=== PATIENT | male | born 1995 | race Hispanic/Latino ===

== ENCOUNTER 2019-09-16 21:24 | Emergency (ER) | payer SELFPAY ==
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
[2019-09-16] MEDS ORDERED: HYDROcodone/Acetaminophen 10/325 mg Tablet ONE (22:23)
== END 2019-09-16 22:26 | disposition home or self-care (01) ==
LOC: ERS 21:24
DX: S29.9XXA Unspecified injury of thorax, initial encounter (principal); F17.210 Nicotine dependence, cigarettes, uncomplicated; V49.49XA Driver injured in collision with other motor vehicles in traffic accident, initial encounter
CPT/HCPCS: 71045

== ENCOUNTER 2020-12-13 19:15 | Inpatient (IN) | payer SELFPAY ==
[~2020-12-13 19:15] MED LIST: Iopamidol-370 76% 500 ML 1 ML ONE
[2020-12-13] MEDS ORDERED: Acetaminophen 500 MG TAB ONE (19:49)
[2020-12-13] MEDS ORDERED: Dexamethasone 4 mg/ml Vial ONE (19:51)
[2020-12-13] MEDS ORDERED: Ketorolac Tromethamine 30 MG/ML VIAL ONE (19:51)
[2020-12-13 20:18] LABS: ALT (SGPT) 23 U/L (8-55); AST (SGOT) 25 U/L (5-34); Albumin 3.9 g/dL (3.5-5.0); Alkaline Phosphatase 81 U/L (40-110); Anion Gap 13 mmol/L (10-20); BUN (Urea Nitrogen) 14 mg/dL (8.9-20.6); Bilirubin, Total 0.3 mg/dL (0.2-1.2); CK (CPK) 73 U/L (30-200); Calc. Creatinine Clearance 0 mL/min (70-130); Calcium 8.7 mg/dL (7.8-10.44); Carbon Dioxide 23 mmol/L (22-29); Chloride 102 mmol/L (98-107); Globulin 2.9 g/dL (2.4-3.5); Glucose 134 mg/dL (70-105); Lipase 11 U/L (8-78); Potassium 3.7 mmol/L (3.5-5.1); Protein, Total 6.8 g/dL (6.0-8.3); Sodium 134 mmol/L (136-145)
[2020-12-13 20:22] LABS: Hemoglobin 13.9 g/dL (14.0-18.0); Mean Corpuscular HGB CONC 32.9 g/dL (32.0-36.0); Mean Corpuscular Volume 88.1 fL (78.0-98.0); Mean Platelet Volume 7.5 fL (7.4-10.4); Platelet Count 275 thou/uL (130-400); White Blood Cell (WBC) Count 20.8 thou/uL (4.8-10.8)
[2020-12-13 20:47] LABS: CKMB 1.5 ng/mL (0-6.6)
[2020-12-13 20:53] LABS: Band 6 % (5-11); Lymphocytes 10 % (21-51); MDiff Complete? YES; Monocytes 10 % (0-10); Neutrophil 73 % (42-75); Platelet Morphology Comment Appears Adequate; RBC Morphology Normal; Reactive Lymphocytes 1 % (0-10)
[2020-12-13] MEDS ORDERED: Aspirin Chewable 81 MG TAB ONE ×2 (21:08)
[2020-12-13] MEDS ORDERED: Cefepime 2 GM VIAL ONE (22:18)
[2020-12-13 22:32] LABS: SARS-CoV-2 NAA Rapid Test Not Detected (NotDetected)
[2020-12-13] MEDS ORDERED: Vancomycin 1 GM/200 ML BAG ONE (22:47)
[2020-12-13] MEDS ORDERED: Sodium Chloride 0.9% 1,000 ML IV SCH (23:45)
[2020-12-13] MEDS ORDERED: Ondansetron ODT 4 MG TAB SL PRN (23:45)
[2020-12-13] MEDS ORDERED: Ondansetron PF 4 MG/2 ML Vial IVP PRN (23:45)
[2020-12-13 23:58] LABS: Troponin I 1.292 ng/mL (< 0.028)
[2020-12-14] MEDS ORDERED: Norepinephrine 8 MG/0.9% NS 250 ML ONE (00:39)
[2020-12-14] MEDS ORDERED: Atropine Sulfate 1 mg/10 ml Syringe ONE (00:45)
[2020-12-14 00:50] LABS: Actual Bicarbonate (HCO3a) 21.2 mEq/L (22-28); Base Excess (BEa) -4.5 mEq/L (-2.0 to +3.0); CO2 Tension 41.3 mmHg (35.0-45.0); Calcium, Ionized (arterial) 1.11 mmol/L (1.12-1.30); Hemoglobin (Hb) 12.6 g/dL (14.0-18.0); pH, Arterial 7.33 (7.35-7.45)
[2020-12-14 00:53] LABS: ALV-art Gradient 72.305 mmHg (0-20); O2 Tension (PaO2), arterial 25.8 mmHg (80.0-100.0)
[2020-12-14] MEDS ORDERED: Nitroglycerin 0.4 MG TAB (25 Tab Bottle) ONE (01:05)
[2020-12-14] MEDS ORDERED: Ondansetron PF 4 MG/2 ML Vial IVP PRN (01:28)
[2020-12-14] MEDS ORDERED: Acetaminophen 325 MG TAB PO PRN (01:28)
[2020-12-14] MEDS ORDERED: Morphine 4 MG/ML VIAL SLOW IVP PRN (01:30)
[2020-12-14] MEDS ORDERED: Morphine 4 MG/ML VIAL ONE (01:33)
[2020-12-14] MEDS ORDERED: Sodium Chloride 0.9% 10 ML ONE (01:35)
[2020-12-14 01:52] VITALS: BMI 21.1
[2020-12-14 02:19] LABS: #Lymphocytes 1.4 thou/uL (1.20-3.40); #Monocytes 0.6 thou/uL (0.11-0.59); #Neutrophils 20.3 thou/uL (1.40-6.50); %Basophils 0.1 % (0.0-1.0); %Eosinophils 0.1 % (0.0-10.0); %Lymphocytes 6.3 % (21.0-51.0); %Monocytes 2.7 % (0.0-10.0); %Neutrophils 90.8 % (42.0-75.0); Hemoglobin 13.3 g/dL (14.0-18.0); Mean Corpuscular HGB CONC 33.3 g/dL (32.0-36.0); Mean Corpuscular Hemoglobin 30.1 pg (27.0-31.0); Mean Corpuscular Volume 90.2 fL (78.0-98.0); Platelet Count 267 thou/uL (130-400); RBC Distribution Width 12.1 % (11.5-14.5); Red Blood Cell (RBC) Count 4.43 mill/uL (4.70-6.10); White Blood Cell (WBC) Count 22.3 thou/uL (4.8-10.8)
[2020-12-14 02:26] LABS: Amphetamine Detected (NotDetected); Barbiturates Screen Not Detected (NotDetected); Benzodiazepine Screen Not Detected (NotDetected); Cocaine Metabolite Screen Not Detected (NotDetected); Methadone Not Detected (NotDetected); Methamphetamine Detected (NotDetected); Opiate Screen Not Detected (NotDetected); Oxycodone Screen Not Detected (NotDetected); Phencyclidine (PCP) Not Detected (NotDetected); THC/Cannabinoid Screen Not Detected (NotDetected); Tricyclic Screen Not Detected (NotDetected)
[2020-12-14] MEDS ORDERED: Enoxaparin Sodium 60 MG/0.6 ML SYRINGE SC SCH (02:45)
[2020-12-14] MEDS ORDERED: ACYCLOVIR SODIUM IVPB SCH (02:45)
[2020-12-14 02:51] LABS: ALT (SGPT) 57 U/L (8-55); AST (SGOT) 66 U/L (5-34); Albumin 3.3 g/dL (3.5-5.0); Alkaline Phosphatase 72 U/L (40-110); Anion Gap 11 mmol/L (10-20); BUN (Urea Nitrogen) 12 mg/dL (8.9-20.6); Bilirubin, Total 0.3 mg/dL (0.2-1.2); Calc. Creatinine Clearance 114 mL/min (70-130); Carbon Dioxide 19 mmol/L (22-29); Chloride 111 mmol/L (98-107); Globulin 2.6 g/dL (2.4-3.5); Glucose 164 mg/dL (70-105); Potassium 4.7 mmol/L (3.5-5.1); Protein, Total 5.9 g/dL (6.0-8.3); Sodium 136 mmol/L (136-145)
[2020-12-14 02:56] VITALS: BP 83/47
[2020-12-14] MEDS ORDERED: Sodium Chloride 0.9% 1,000 ML IV SCH (03:00)
[2020-12-14] MEDS ORDERED: Thiamine HCl 200 MG/2 ML VIAL SLOW IVP SCH (03:00)
[2020-12-14 03:07] LABS: Troponin I 1.359 ng/mL (< 0.028)
[2020-12-14] MEDS ORDERED: Norepinephrine 8 MG/0.9% NS 250 ML IVPB SCH (03:15)
[2020-12-14 03:29] LABS: Bacteria/HPF None Seen HPF (None Seen); Bilirubin Negative (Negative); Blood, Urine 1+ (Negative); Clarity Clear (Clear); Glucose, Urine (Dipstick) 200 mg/dL (Negative); Ketone, Urine Negative (Negative); Leukocyte Negative Leu/uL (Negative); Nitrite Negative (Negative); Protein, Urine (Dipstick) 10 mg/dL (Neg-Trace); RBC/HPF 0-3 HPF (0-3); Specific Gravity, Urine 1.043 (1.002-1.036); Squamous Epithelial None Seen HPF (0-3); Urobilinogen Normal mg/dL (Less than 2); WBC/HPF 0-3 HPF (0-3); pH, Urine 6.5 (5.0-9.0)
[2020-12-14 03:30] LABS: Urine Culture Reflex No No
[2020-12-14 03:54] LABS: Magnesium 2.1 mg/dL (1.6-2.6)
[2020-12-14 04:08] VITALS: TEMP 97.6
[2020-12-14] MEDS ORDERED: VANCOMYCIN 1.25 GM/250 ML BAG 1.25 GM in Premix Bag 1 BAG IVPB SCH (06:00)
[2020-12-14] MEDS ORDERED: Lactated Ringer's 1,000 ML IV SCH (08:30)
[2020-12-14] MEDS ORDERED: Multivitamin W/ Minerals 1 TAB PO SCH (09:00)
[2020-12-14] MEDS ORDERED: Aspirin 325 MG TAB PO SCH (09:00)
[2020-12-14] MEDS ORDERED: Enoxaparin Sodium 40 MG/0.4 ML SYRINGE SC SCH (09:00)
[2020-12-14] MEDS ORDERED: Folic Acid 1 MG TAB PO SCH (09:00)
[2020-12-14] MEDS ORDERED: Famotidine 20 MG TAB PO SCH (09:00)
[2020-12-14] MEDS ORDERED: Cefepime 2 GM in Sodium Chloride 0.9% 100 ML IVPB SCH (09:00)
[2020-12-14 10:55] LABS: Troponin I 2.215 ng/mL (< 0.028)
[2020-12-14 11:52] LABS: Hemoglobin A1c 5.5 % (4.0-6.0)
[2020-12-15] MEDS ORDERED: Enoxaparin Sodium 40 MG/0.4 ML SYRINGE SC SCH (09:00)
[2020-12-17] MEDS ORDERED: FLU VACC QS2021-22(6MOS UP)/PF 60 MCG/0.5 ML SYRINGE IM ONE (09:00)
== END 2020-12-14 11:02 | disposition home or self-care (01) | DRG 871 ==
LOC: ERS 19:15 → 2NO 22:54 → CCU 12-14 02:34
PROVIDERS: ADMIT Internal Medicine; ATTEND Internal Medicine
PROC: 3E033XZ Introduction of Vasopressor into Peripheral Vein, Percutaneous Approach (ICD-10-PCS; principal; 2020-12-13)
DX: A41.9 Sepsis, unspecified organism (principal); R65.21 Severe sepsis with septic shock; I21.4 Non-ST elevation (NSTEMI) myocardial infarction; G93.41 Metabolic encephalopathy; Z20.822 Contact with and (suspected) exposure to COVID-19; R00.1 Bradycardia, unspecified; F17.210 Nicotine dependence, cigarettes, uncomplicated; F10.10 Alcohol abuse, uncomplicated; F19.10 Other psychoactive substance abuse, uncomplicated; Z82.49 Family history of ischemic heart disease and other diseases of the circulatory system; Z53.29 Procedure and treatment not carried out because of patient's decision for other reasons
CPT/HCPCS: 36415; 36416; 70450; 71045; 71275; 80053; 80306; 81001; 82550; 82553; 82805; 83036; 83605; 83690; 83735; 84484; 85025; 85379; 87040; 93005; 93010; 93306; 96365; 96367; 96375; J0133; J0692; J1100; J1885; J2270; J3370; J3411; J3490; J7050; J7120; U0002